=== PATIENT | male | born 1950 | race Caucasian/White ===

== ENCOUNTER 2016-04-29 16:42 | Inpatient (IN) | payer OTHER ==
[2016-04-29 17:48] VITALS: BMI 25.5
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
[2016-04-29] MEDS ORDERED: guaiFENesin/D-METHORPHAN HB 10 ML UNIT-DOSE CUPS PO PRN (18:16)
[2016-04-29] MEDS ORDERED: chlordiazePOXIDE HCL 25 MG CAPSULE PO PRN (18:16)
[2016-04-29] MEDS ORDERED: LOPERAMIDE HCL 2 MG CAPSULE PO PRN (18:16)
[2016-04-29] MEDS ORDERED: MAGNESIUM HYDROX 2400MG/30ML ORAL SUSPENSION 30 ML CUP PO PRN (18:16)
[2016-04-29] MEDS ORDERED: MAGNESIUM CITRATE 300 ML BOTTLE PO PRN (18:16)
[2016-04-29] MEDS ORDERED: hydrOXYzine PAMOATE 50 MG CAPSULE (FP) PO PRN (18:16)
[2016-04-29] MEDS ORDERED: NICOTINE POLACRILEX 2 MG GUM BC PRN (18:16)
[2016-04-29] MEDS ORDERED: MAG HYDROX/AL HYDROX/SIMETH 30 ML UNIT-DOSE CUP PO PRN (18:16)
[2016-04-29] MEDS ORDERED: ACETAMINOPHEN 325 MG TABLET (FP) PO PRN (18:16)
[2016-04-29] MEDS ORDERED: IBUPROFEN 400 MG TABLET (FP) PO PRN (18:16)
[2016-04-29] MEDS ORDERED: chlordiazePOXIDE HCL 25 MG CAPSULE PO ONE (18:16)
[2016-04-29] MEDS ORDERED: P-EPHED 60MG/TRIPROLIDI 2.5MG TABLET PO PRN (18:16)
[2016-04-29] MEDS ORDERED: diphenhydrAMINE HCL 50 MG CAPSULE PO PRN (18:16)
[2016-04-29] MEDS ORDERED: MENTHOL/PHENOL 1 EACH UD MM PRN (18:16)
[2016-04-29] MEDS: NICOTINE 21 MG/24 HOURS TOPICAL PATCH TD SCH (19:06)
[2016-04-29] MEDS: THIAMINE HCL 100 MG TABLET (FP) PO SCH (22:09)
[2016-04-29] MEDS: chlordiazePOXIDE HCL 25 MG CAPSULE PO SCH (22:09)
[2016-04-30] MEDS: chlordiazePOXIDE HCL 25 MG CAPSULE PO SCH ×4 (05:57→22:05)
[2016-04-30 10:02] LABS: MCH 31.9 pg (25.7-33.7); MCHC 33.8 g/dl (32.0-35.9); MEAN CELL VOLUME 94.4 fl (80-96); MEAN PLT VOLUME 7.9 fl (7.5-11.1); PLATELET COUNT 202 K/MM3 (134-434); RDW 13.3 % (11.9-15.9); WHITE BLOOD COUNT 7.5 K/mm3 (4.0-10.0)
[2016-04-30] MEDS: NICOTINE 21 MG/24 HOURS TOPICAL PATCH TD SCH (10:11)
[2016-04-30] MEDS: PRENATAL VITAMINS W/ FOLIC ACID TABLET (FP) PO SCH (10:11)
[2016-04-30 10:33] LABS: ALBUMIN 3.5 g/dl (3.4-5.0); ALK PHOS 82 U/L (45-117); ANION GAP 10 (8-16); BILIRUBIN,TOTAL 0.3 mg/dL (0.2-1.0); CO2 25 mmol/L (21-32); GLUCOSE,RANDOM 120 mg/dL (74-106); SGOT/AST 17 U/L (15-37); SGPT/ALT 19 U/L (12-78); TOT PROT 6.1 g/dl (6.4-8.2)
[2016-04-30 13:39] LABS: URINE APPEARANCE CLEAR; URINE BILIRUBIN NEGATIVE (NEGATIVE); URINE BLOOD NEGATIVE (NEGATIVE); URINE COLOR STRAW; URINE GLUCOSE (UA) NEGATIVE (NEGATIVE); URINE KETONE NEGATIVE (NEGATIVE); URINE LEUK ESTERASE NEGATIVE (NEGATIVE); URINE NITRITE NEGATIVE (NEGATIVE); URINE PROTEIN NEGATIVE (NEGATIVE); URINE UROBILINOGEN NEGATIVE E.U./dl (0.2-1.0)
--- NOTE | 2016-04-30 15:01 | PN ---
[facility] CIWA - CIWA Score Nausea/Vomitin-Mild Nausea/No Vomiting Muscle Tremors: 4-Moderate,w/Arms Extend Anxiety: 4-Mod. Anxious/Guarded Agitation: 4-Moderately Restless Paroxysmal Sweats: No Perspiration Orientation: 0-Oriented Tacttile Disturbances: 1-Very Mild Itch/Numbness Auditory Disturbances: 0-None Visual Disturbances: 0-None Headache: 3-Moderate CIWA-Ar Total Score: 17 BHS Progress Note (SOAP) Subjective: Nausea, restless, anxious, sweating, interrupted sleep, tremor Objective: 04/30/16 15:00 Last Vital Signs Temp Pulse Resp BP Pulse Ox 96.3 F L 67 18 108/62 04/30/16 09:39 04/30/16 09:39 04/30/16 09:39 04/30/16 09:39 Laboratory Tests 04/30/16 04/30/16 04/30/16 07:20 07:20 07:20 WBC 7.5 RBC 4.26 Hgb 13.6 Hct 40.2 MCV 94.4 MCHC 33.8 RDW 13.3 Plt Count 202 MPV 7.9 Sodium 140 Potassium 4.1 Chloride 105 Carbon Dioxide 25 Anion Gap 10 BUN 16 Creatinine 1.0 Creat Clearance w eGFR > 60 Random Glucose 120 H Calcium 9.0 Total Bilirubin 0.3 AST 17 ALT 19 Alkaline Phosphatase 82 Total Protein 6.1 L Albumin 3.5 Urine Color Urine Appearance Urine pH Ur Specific [place] Urine Protein Urine Glucose (UA) Urine Ketones Urine Blood Urine Nitrite Urine Bilirubin Urine Urobilinogen Ur Leukocyte Esterase RPR Titer Nonreactive 04/30/16 13:15 WBC RBC Hgb Hct MCV MCHC RDW Plt Count MPV Sodium Potassium Chloride Carbon Dioxide Anion Gap BUN Creatinine Creat Clearance w eGFR Random Glucose Calcium Total Bilirubin AST ALT Alkaline Phosphatase Total Protein Albumin Urine Color Straw Urine Appearance Clear Urine pH 6.0 Ur Specific [place] 1.009 Urine Protein Negative Urine Glucose (UA) Negative Urine Ketones Negative Urine Blood Negative Urine Nitrite Negative Urine Bilirubin Negative Urine Urobilinogen Negative Ur Leukocyte Esterase Negative RPR Titer Labs noted Assessment: 04/30/16 15:01 Withdrawal symptoms Plan: Continue detox
[2016-04-30] MEDS: THIAMINE HCL 100 MG TABLET (FP) PO SCH (22:05)
--- NOTE | 2016-05-01 00:07 | EKG ---
Test Reason : Blood Pressure : / mmHG Vent. Rate : 070 BPM Atrial Rate : 070 BPM P-R Int : 142 ms QRS Dur : 084 ms QT Int : 394 ms P-R-T Axes : 066 063 069 degrees QTc Int : 425 ms NORMAL SINUS RHYTHM NORMAL ECG NO PREVIOUS ECGS AVAILABLE Confirmed by LISA SALMON MD ([id number]) on 05/01/2016 12:07:21 AM Referred By: Confirmed By:LISA SALMON MD
[2016-05-01] MEDS: chlordiazePOXIDE HCL 25 MG CAPSULE PO SCH ×3 (06:06→17:10)
[2016-05-01] MEDS: NICOTINE 21 MG/24 HOURS TOPICAL PATCH TD SCH (10:06)
[2016-05-01] MEDS: PRENATAL VITAMINS W/ FOLIC ACID TABLET (FP) PO SCH (10:06)
--- NOTE | 2016-05-01 10:29 | PN ---
[facility] CIWA - CIWA Score Nausea/Vomitin-No Nausea/No Vomiting Muscle Tremors: 4-Moderate,w/Arms Extend Anxiety: 4-Mod. Anxious/Guarded Agitation: 4-Moderately Restless Paroxysmal Sweats: 1-Minimal Palms Moist Orientation: 0-Oriented Tacttile Disturbances: 3-Moderate Itch/Numb/Burn Auditory Disturbances: 0-None Visual Disturbances: 0-None Headache: 0-None Present CIWA-Ar Total Score: 16 S Progress Note (SOAP) Subjective: ANXIETY,TREMORS,SWEATS, INTERMITTENT SLEEP Objective: 05/01/16 10:40 Vital Signs Temperature 96.0 F L 05/01/16 06:28 Pulse Rate 66 05/01/16 06:28 Respiratory Rate 16 05/01/16 06:28 Blood Pressure 101/66 05/01/16 06:28 O2 Sat by Pulse Oximetry (%) Laboratory Last Values WBC 7.5 K/mm3 (4.0-10.0) 04/30/16 07:20 RBC 4.26 M/mm3 (4.00-5.60) 04/30/16 07:20 Hgb 13.6 GM/dL (11.7-16.9) 04/30/16 07:20 Hct 40.2 % (35.4-49) 04/30/16 07:20 MCV 94.4 fl (80-96) 04/30/16 07:20 MCHC 33.8 g/dl (32.0-35.9) 04/30/16 07:20 RDW 13.3 % (11.9-15.9) 04/30/16 07:20 Plt Count 202 K/MM3 (134-434) 04/30/16 07:20 MPV 7.9 fl (7.5-11.1) 04/30/16 07:20 Sodium 140 mmol/L (136-145) 04/30/16 07:20 Potassium 4.1 mmol/L (3.5-5.1) 04/30/16 07:20 Chloride 105 mmol/L (98-107) 04/30/16 07:20 Carbon Dioxide 25 mmol/L (21-32) 04/30/16 07:20 Anion Gap 10 (8-16) 04/30/16 07:20 BUN 16 mg/dL (7-18) 04/30/16 07:20 Creatinine 1.0 mg/dL (0.7-1.3) 04/30/16 07:20 Creat Clearance w eGFR > 60 (>60) 04/30/16 07:20 Random Glucose 120 mg/dL (74-106) H 04/30/16 07:20 Calcium 9.0 mg/dL (8.5-10.1) 04/30/16 07:20 Total Bilirubin 0.3 mg/dL (0.2-1.0) 04/30/16 07:20 AST 17 U/L (15-37) 04/30/16 07:20 ALT 19 U/L (12-78) 04/30/16 07:20 Alkaline Phosphatase 82 U/L (45-117) 04/30/16 07:20 Total Protein 6.1 g/dl (6.4-8.2) L 04/30/16 07:20 Albumin 3.5 g/dl (3.4-5.0) 04/30/16 07:20 Urine Color Straw 04/30/16 13:15 Urine Appearance Clear 04/30/16 13:15 Urine pH 6.0 (5.0-8.0) 04/30/16 13:15 Ur Specific [place] 1.009 (1.001-1.035) 04/30/16 13:15 Urine Protein Negative (NEGATIVE) 04/30/16 13:15 Urine Glucose (UA) Negative (NEGATIVE) 04/30/16 13:15 Urine Ketones Negative (NEGATIVE) 04/30/16 13:15 Urine Blood Negative (NEGATIVE) 04/30/16 13:15 Urine Nitrite Negative (NEGATIVE) 04/30/16 13:15 Urine Bilirubin Negative (NEGATIVE) 04/30/16 13:15 Urine Urobilinogen Negative E.U./dl (0.2-1.0) 04/30/16 13:15 Ur Leukocyte Esterase Negative (NEGATIVE) 04/30/16 13:15 RPR Titer Nonreactive (NONREACTIVE) 04/30/16 07:20 Assessment: 05/01/16 10:40 WITHDRAWAL SX Plan: CONTINUE DETOX
--- NOTE | 2016-05-01 13:11 | CONSULT ---
[facility] Psychiatric Consult - Data Date of interview: 05/01/16 Admission source: [facility] Identifying data: This is 65 years old male with no psychiatric hospitalization history intoxicated with : Alcohol and Nicotine Substance Abuse History: - Smoking Cessation. Smoking history: Current every day smoker. Have you smoked in the past 12 months: Yes. Aproximately how many cigarettes per day: 20. Cigars Per Day: 0. Hx Chewing Tobacco Use: No. Initiated information on smoking cessation: Yes. 'Breaking Loose' booklet given : 04/29/16. - Substance & Tx. History. Hx Alcohol Use: Yes. Hx Substance Use : No. Substance Use Type: Alcohol. Hx Substance Use Treatment: Yes (in 1999 [facility]). - Substances Abused. Alcohol. Route: Oral. Frequency: Daily. Amount used: 1/5th of vodka/ 1cae of 16 ozs of beer. Age of first use: 17. Date of Last Use: 04/28/16 Medical History: Right eye nlindness, Syncope history, Psychiatric History: Patient reports history of depression, reports no medications taking prior to admission Physical/Sexual Abuse/Trauma History: Denies Additional Comment: Observation. Detox Unit Care Protocol Mental Status Exam - Mental Status Exam Alert and Oriented to: Person Cognitive Function: Fair Patient Appearance: Unkempt Mood: Sad Affect: Flat Patient Behavior: Sedated Speech Pattern: Delayed Voice Loudness: Mildly Soft/Quiet Thought Process: Circumstantial Thought Disorder: Being Controlled Hallucinations: Denies Suicidal Ideation: Denies Homicidal Ideation: Denies Insight/Judgement: Fair Sleep: Difficulty falling asleep Appetite: Fair Muscle strength/Tone: Mild Hypotonicity Gait/Station: Shuffling Additional Comments: Observation. Detox Unit Care Protocol Psychiatric Findings - Problem List ([place] 1, 2,3) (1) Alcohol dependence with uncomplicated withdrawal Current Visit: Yes Status: Acute (2) Nicotine dependence Current Visit: Yes Status: Acute (3) Drug-induced mood disorder Current Visit: Yes Status: Acute - Initial Treatment Plan Initial Treatment Plan: Observation. Detox Unit Care Protocol
[2016-05-01] MEDS: THIAMINE HCL 100 MG TABLET (FP) PO SCH (22:05)
[2016-05-01] MEDS: chlordiazePOXIDE 5 MG CAPSULE PO SCH (22:05)
[2016-05-02] MEDS: chlordiazePOXIDE 5 MG CAPSULE PO SCH ×3 (06:02→17:15)
[2016-05-02] MEDS: NICOTINE 21 MG/24 HOURS TOPICAL PATCH TD SCH (10:07)
[2016-05-02] MEDS: PRENATAL VITAMINS W/ FOLIC ACID TABLET (FP) PO SCH (10:07)
--- NOTE | 2016-05-02 10:29 | PN ---
BHS Progress Note (SOAP) Subjective: ANXIETY,SWEATS,FATIGUE. Objective: 05/02/16 10:28 Vital Signs Temperature 96.7 F L 05/02/16 09:58 Pulse Rate 79 05/02/16 09:58 Respiratory Rate 18 05/02/16 09:58 Blood Pressure 107/63 05/02/16 09:58 O2 Sat by Pulse Oximetry (%) Assessment: 05/02/16 10:28 WITHDRAWAL SX Plan: CONTINUE DETOX
[2016-05-02] MEDS: chlordiazePOXIDE HCL 10 MG CAPSULE PO SCH (22:07)
[2016-05-02] MEDS: THIAMINE HCL 100 MG TABLET (FP) PO SCH (22:07)
[2016-05-03] MEDS: chlordiazePOXIDE HCL 10 MG CAPSULE PO SCH ×2 (06:13→10:07)
[2016-05-03 09:43] VITALS: BP 101/67; PULSE 69; TEMP 98.6
--- NOTE | 2016-05-03 09:54 | PN ---
BHS Progress Note (SOAP) Subjective: DETOX PROCEEDING WELL. ANXIETY,FATIGUE. Objective: 05/03/16 09:53 Vital Signs Temperature 98.6 F 05/03/16 09:43 Pulse Rate 69 05/03/16 09:43 Respiratory Rate 18 05/03/16 09:43 Blood Pressure 101/67 05/03/16 09:43 O2 Sat by Pulse Oximetry (%) Assessment: 05/03/16 09:53 DECREASED WITHDRAWAL SX Plan: CONTINUE DETOX
[2016-05-03] MEDS: PRENATAL VITAMINS W/ FOLIC ACID TABLET (FP) PO SCH (10:07)
[2016-05-03] MEDS: NICOTINE 21 MG/24 HOURS TOPICAL PATCH TD SCH (10:07)
--- NOTE | 2016-05-03 11:40 | DS ---
[facility] Detox Discharge Summary Admission Date: 04/29/16 Discharge Date: 05/03/16 - History Present History: Alcohol Dependence Additional Comments: PT COMPLETED DETOX. Pertinent Past History: S/P BLIND RIGHT EYE HX DEPRESSION - Physical Exam Results Vital Signs: Vital Signs Temperature 98.6 F 05/03/16 09:43 Pulse Rate 69 05/03/16 09:43 Respiratory Rate 18 05/03/16 09:43 Blood Pressure 101/67 05/03/16 09:43 O2 Sat by Pulse Oximetry (%) Pertinent Admission Physical Exam Findings: WITHDRAWAL SX - Treatment Hospital Course: Detox Protocol Followed, Detoxed Safely, Responded well, Discharged Condition Good - Diagnosis (1) Alcohol dependence with uncomplicated withdrawal Status: Acute (2) Blindness of right eye Status: Acute (3) Drug-induced mood disorder Status: Acute (4) Nicotine dependence Status: Acute Qualifiers: Nicotine product type: cigarettes Substance use status: in withdrawal Qualified Code(s): F17.213 - Nicotine dependence, cigarettes, with withdrawal - AMA Did Patient Leave Against Medical Advice: No
== END 2016-05-03 11:40 | disposition home or self-care (01) | DRG 897 ==
LOC: YASAS 16:42 → Y3N 17:50
PROVIDERS: ADMIT Internal Medicine; ATTEND Internal Medicine
PROC: HZ2ZZZZ Detoxification Services for Substance Abuse Treatment (ICD-10-PCS; principal; 2016-05-03)
DX: F10.230 Alcohol dependence with withdrawal, uncomplicated (principal); F17.210 Nicotine dependence, cigarettes, uncomplicated; F19.24 Other psychoactive substance dependence with psychoactive substance-induced mood disorder; F32.9 Major depressive disorder, single episode, unspecified; R55 Syncope and collapse; H54.8 Legal blindness, as defined in USA
CPT/HCPCS: 36415; 80053; 81003; 85027; 86593; 93005; 93010